=== PATIENT | female | born 1955 | race African-American/Black ===

== ENCOUNTER 2017-10-27 11:44 | Emergency (ER) | payer MEDICARE, MEDICAID ==
--- NOTE | 2017-10-27 12:04 | CT ---
CT OF THE BRAIN WITHOUT CONTRAST: Date: 10/27/17 COMPARISON: None. HISTORY: Left-sided weakness. TECHNIQUE: Multiple contiguous axial images were obtained in a CT of the brain without contrast. FINDINGS: There are scattered hypodensities in the subcortical and periventricular white matter, likely seconda ry to small vessel ischemic disease. No large confluent infarction is seen. There is no evidence of h ydrocephalus, intracranial hemorrhage, or extra-axial fluid collection. The calvarium and overlying soft tissues are unremarkable. The visualized paranasal sinuses and masto id air cells are well aerated. IMPRESSION: No evidence of acute intracranial abnormality. Dr. Villareal notified of findings at 1152 hours on 10/27/17. CODE CR. POS: [facility]
[2017-10-27 12:52] LABS: Hemoglobin 11.2 g/dL (12.0-16.0); Mean Corpuscular HGB CONC 32.1 g/dL (32.0-36.0); Mean Corpuscular Volume 87.1 fL (78.0-98.0); Mean Platelet Volume 11.5 fL (7.4-10.4); Platelet Count 97 thou/uL (130-400); RBC Distribution Width 18.5 % (11.5-14.5); Red Blood Cell (RBC) Count 4.01 mill/uL (4.20-5.40); White Blood Cell (WBC) Count 3.2 thou/uL (4.8-10.8)
[2017-10-27 13:00] LABS: Prothrombin Time 13.7 SEC (12.0-14.7)
[2017-10-27 13:01] LABS: PTT 28.5 SEC (22.9-36.1)
[2017-10-27] MEDS ORDERED: ISOVUE-370 76%-LOCM 1 ML ONE (13:10)
[2017-10-27 13:14] LABS: ALT (SGPT) 7 U/L (8-55); AST (SGOT) 22 U/L (5-34); Albumin 4.2 g/dL (3.4-4.8); Alkaline Phosphatase 80 U/L (40-150); Anion Gap 15 mmol/L (10-20); BUN (Urea Nitrogen) 15 mg/dL (9.8-20.1); Bilirubin, Total 0.3 mg/dL (0.2-1.2); Calc. Creatinine Clearance 0 mL/min (70-130); Calcium 9.5 mg/dL (7.8-10.44); Carbon Dioxide 21 mmol/L (23-31); Chloride 105 mmol/L (98-107); Estimated GFR-MDRD Greater than 90; Globulin 3.4 g/dL (2.4-3.5); Glucose 94 mg/dL (80-115); Potassium 3.7 mmol/L (3.5-5.1); Protein, Total 7.6 g/dL (6.0-8.3); Sodium 137 mmol/L (136-145)
[2017-10-27 13:18] LABS: Band 1 % (5-11); CKMB 1.1 ng/mL (0-6.6); Lymphocytes 37 % (21-51); MDiff Complete? YES; Monocytes 3 % (0-10); Neutrophil 59 % (42-75); RBC Morphology Normal; Troponin I Less than 0.010 ng/mL (< 0.028)
--- NOTE | 2017-10-27 13:20 | CT ---
CTA OF THE HEAD AND NECK URILIZING IV CONTRAST AND 3D REFORMATTED IMAGING: INDICATION: Stroke alert with left-sided weakness. FINDINGS: No hemodynamically significant stenosis, occlusion, or aneurysmal formation is demonstrated. The rig ht ICA is moderately tortuous. There is mild vascular calcification involving the common carotid and internal carotid arteries bilaterally. No large vessel thrombus is seen within the intracranial ICA s, proximal MCA, PRABHU, or director of social work. No definite abnormal area of intracranial enhancement is noted. Visualized aerodigestive tract is unremarkable. The thyroid, parotid, and submandibular glands are n ormal-appearing. Visualized lung apices are clear for acute infiltrate. There is mild vascular calcification involving the thoracic aorta. No definite acute osseous abnormality is evident. IMPRESSION: No large-vessel thrombus seen within the intracranial ICAs, vertebral, ACAs, or MCAs. Findings were called to Dr. Coffey at 12:07 p.m. on 10/27/17. CODE CR POS: [facility]
--- NOTE | 2017-10-27 14:32 | RAD ---
CHEST 1 VIEW: HISTORY: Stroke alert. Chest pain. COMPARISON: Chest radiograph 2015. FINDINGS: Heart size is mildly enlarged. No focal airspace consolidation, pneumothorax, or effusion. No acute osseous abnormality. IMPRESSION: No acute intrathoracic abnormality. POS: [facility]
[2017-10-27] MEDS ORDERED: Ondansetron HCl/PF 4 MG/2 ML Vial ONE (14:43)
[2017-10-27] MEDS ORDERED: Valsartan 80 MG TAB PO SCH (16:00)
--- NOTE | 2017-10-31 12:52 | CT ---
CTA OF THE HEAD AND NECK URILIZING IV CONTRAST AND 3D REFORMATTED IMAGING: INDICATION: Stroke alert with left-sided weakness. FINDINGS: No hemodynamically significant stenosis, occlusion, or aneurysmal formation is demonstrated. The rig ht ICA is moderately tortuous. There is mild vascular calcification involving the common carotid and internal carotid arteries bilaterally. No large vessel thrombus is seen within the intracranial ICA s, proximal MCA, PRABHU, or doll wig maker rooted hair. No definite abnormal area of intracranial enhancement is noted. Visualized aerodigestive tract is unremarkable. The thyroid, parotid, and submandibular glands are n ormal-appearing. Visualized lung apices are clear for acute infiltrate. There is mild vascular calcification involving the thoracic aorta. No definite acute osseous abnormality is evident. IMPRESSION: No large-vessel thrombus seen within the intracranial ICAs, vertebral, ACAs, or MCAs. Findings were called to Dr. Coffey at 12:07 p.m. on 10/27/17. CODE CR
== END 2017-10-27 17:06 | disposition short-term general hospital (02) ==
LOC: ERS 11:44
DX: I63.9 Cerebral infarction, unspecified (principal); I10 Essential (primary) hypertension; Z79.899 Other long term (current) drug therapy
CPT/HCPCS: 36415; 36416; 70450; 70496; 70498; 71045; 80053; 82553; 84484; 85025; 85610; 85730; 93005; 96374; J2405